=== PATIENT | female | born 1975 | race American Indian/Alaskan Native ===

== ENCOUNTER 2018-04-25 06:07 | Day surgery (SDC) | payer BC ==
[2018-04-21 11:32] LABS: BUN/Creatinine Ratio 14; Blood Urea Nitrogen 7 mg/dL (7-17); Calcium 9.5 mg/dL (8.4-10.2); Hemolysis Index 3
[2018-04-21 11:36] LABS: Hematocrit 29.1 % (30.3-42.9); Hemoglobin 8.8 gm/dl (10.1-14.3); Mean Corpuscular HGB Conc 30 % (30-34); Mean Corpuscular Hemoglobin 22 pg (28-32); Mean Corpuscular Volume 71 fl (79-97); Platelet Count 338 K/mm3 (140-440); Red Blood Count 4.11 M/mm3 (3.65-5.03); Red Cell Distribution Width 24.2 % (13.2-15.2)
[2018-04-21 13:26] LABS: Anisocytosis 2+; Hypochromasia 2+; Total Cells Counted 100
[2018-04-21 13:27] LABS: Large Platelets Few; Ovalocytes 1+; Platelet Estimate Cons; Poikilocytosis 2+; Tear Drop Cells Few
--- NOTE | 2018-04-24 16:53 | History and Physical Report ---
History of Present Illness Date of examination: 04/21/18 History of present illness: Patient has been reassessed/reevaluated H&P has been reviewed. No interval changes. This is a 42 years old female who presents with menstrual disorder. he patient also presents with menstrual disorder. She complains of irregular menses, heavy bleeding, dysmenorrhea, clotting and cramping, but denies mid- cycle spotting, lack of menses, history of ovarian cysts, history of thyroid disease, history of fibroids, history of PCOS, history of bleeding disorder, lightheadedness and fatigue. Number of pads used per day is 6-8. Menstrual flow lasts 3 days and > 7 days. Patient reports that for pain she uses ibuprofen. Patient's work up has included hysterosonogram which revealed an intracavitary mass Patient desires definitive treatment Vital Signs: Patient Profile: 42 Years Old Female LMP: 04/05/2018 Height: 62 inches (157.48 cm) Weight: 182 pounds (82.73 kg) BMI: 33.28 BSA: 1.84 Menstrual History: LMP (date): 04/05/2018 Past History : 3 Term Births: 2 Premature Births: 0 Living Children: 2 Para: 2 Mult. Births: 0 Prev : 0 Prev. attempt? 0 Aborta: 1 Elect. Ab: 1 Spont. Ab: 0 Ectopics: 0 [employer] History Operations: Abdominal Surgery: (2013) abdominoplasty Tubal Ligation (1994) Breast Reduction: (1999) D&C: Abnormal PAP: negative Uterine Anomaly: negative Infection History HIV Risk Eval: no Personal hx. 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 Risk Factors: Smoked Tobacco Use: Never smoker Smokeless Tobacco Use: Never Passive smoke exposure: no Drug use: no HIV high-risk behavior: no Alcohol use: yes Exercise: no Seatbelt use: 100 % Review of Systems General Denies fever, chills, sweats, anorexia, fatigue, weakness, malaise, weight loss and sleep disorder. Complains of menorrhagia, abnormal vaginal bleeding and painful periods. Denies vaginal discharge, incontinence, dysuria, hematuria, urinary frequency, amenorrhea, pelvic pain, genital sores, decreased libido, painful sex , urinary urgency, hot flashes, vaginal dryness, vaginal itching and vaginal odor. CV Denies chest pains, palpitations, syncope, dyspnea on exertion, orthopnea, PND and peripheral edema. Resp Denies cough, dyspnea at rest, excessive sputum, hemoptysis, wheezing and pleurisy. GI Denies nausea, vomiting, diarrhea, constipation, change in bowel habits, abdominal pain, melena, hematochezia, jaundice, gas/bloating, indigestion/ heartburn, dysphagia and odynophagia. Breast Denies left breast lump, right breast lump, nipple discharge, bloody discharge from nipple, breast pain, abnormal mammogram and breast enlargement. Psych Denies depression, anxiety, irritability and mood swings. Past History Past Medical History: other (See HPI) Past Surgical History: Other (See HPI) Social history: other (See HPI) Family history: other (See HPI) Medications and Allergies Allergies Allergy/AdvReac Type Severity Reaction Status Date / Time No Known Allergies Allergy Verified 04/25/18 00:40 Home Medications Medication Instructions Recorded Confirmed Last Taken Type Guaifen/Phenyleph/Acetaminophn 1 each PO PRN PRN 04/15/18 04/15/18 Unknown History [Kro Sinus Relief Caplet] Review of Systems Constitutional: other (See HPI) Exam - Physical Exam Narrative exam: HEENT: normocephalic, no lesions or deformities Neck/Thyroid: supple, thyroid normal Skin no significant abnormal lesions or rashes Chest: respiratory effort normal, clear to auscultation Breasts: skin/areolae normal, no masses, no nipple discharge, no erythema/warmth /tenderness, and axillae normal. Breast reduction surgical scars .Tatoo(s) are present CV: regular, normal S1-S2, no murmur, no rub, no gallop Abdomen: normal bowel sounds, soft, nontender, no HSM abdominoplasty scar .Tatoo (s) are present Musculoskeletal: grossly normal ROM in joints, no joint tenderness or muscle weakness Neuro: no gross anomalities Extremities: no clubbing, cyanosis, or edema [employer] Exams Vulva/Vagina: No lesions, normal BUS, normal rugae Cervix: No lesions; no cervical motion tenderness Uterus: unable to palpate due to abdominoplasty scar Adnexae: unable to palpate due to abdominoplasty scar Rectovaginal: exam defered - Constitutional Vitals: Temp Pulse Resp BP Pulse Ox 98.6 F 76 20 110/70 04/21/18 10:30 04/21/18 10:30 04/21/18 10:30 04/21/18 10:30 Results - Labs CBC & Chem 7: 04/21/18 10:20 04/21/18 10:20 Assessment and Plan - Patient Problems (1) Pelvic mass Current Visit: No Status: Acute Plan to address problem: Diagnosis explained to patient . Questions answered. Medical and surgical treatment options discussed Patient desires definitive treatment Patient desires least invasive procedure Patient desires hysteroscopic myomectomy with endometrial ablation. Discussed risks and benefits of procedure. Informed endometrial ablation does not treat dymenorrhea or myomas. Patient does not desire future fertility Discussed risk of surgery including infection, bleeding and risk of perforating her uterus. Questions answered. Patient understands and desires to proceed (2) Menorrhagia Current Visit: No Status: Acute Qualifiers: Menorrahagia type: with irregular cycle Qualified Code(s): N92.1 - Excessive and frequent menstruation with irregular cycle Plan to address problem: Probably secondary to # 1 (3) Dysmenorrhea Current Visit: No Status: Acute Plan to address problem: Probably secondary to # 1 (4) Anemia Current Visit: No Status: Chronic Qualifiers: Iron deficiency anemia type: chronic blood loss Plan to address problem: Probably secondary to # 2
[~2018-04-25 06:07] MED LIST: LACTATED RINGERS 1,000 ML IV SCH; NACL 0.9% IR ONE; VERSED IV NR
[2018-04-25] MEDS ORDERED: NACL BACTERIOSTATIC INFILTRATI ONE (06:31)
[2018-04-25] MEDS ORDERED: DIPRIVAN 10 MG/ML IV ONE (07:03)
[2018-04-25] MEDS ORDERED: XYLOCAINE MPF 2% ONE (07:04)
[2018-04-25] MEDS ORDERED: DILAUDID ONE (07:20)
[2018-04-25] MEDS ORDERED: DECADRON ONE (07:21)
[2018-04-25] MEDS ORDERED: ZOFRAN ONE (07:22)
--- NOTE | 2018-04-25 07:31 | Anesthesia Consultation ---
Anesthesia Consult and Med Hx Date of service: 04/25/18 - Airway Anesthetic Teeth Evaluation: Good Mental/Hyoid Distance: Adequate Mallampati Class: Class II Intubation Access Assessment: Good - Pulmonary Exam CTA: Yes - Cardiac Exam Cardiac Exam: No Murmur - Pre-Operative Health Status ASA Pre-Surgery Classification: ASA1 - Central Nervous System Hx Psychiatric Problems: No - Hematic Hx Anemia: Yes - Other Systems Hx Cancer: No
--- NOTE | 2018-04-25 07:32 | Anesthesia Day of Surgery ---
Anesthesia Day of Surgery - Day of Surgery Patient Examined: Yes Patient H&P Reviewed: Yes Patient is NPO: Yes
--- NOTE | 2018-04-25 08:37 | Operative Report ---
Operative Report Operative Report: Date of procedure: 04/25/2018 Pre-operative diagnosis: Endometrial mass with menorrhalgia Post-operative diagnosis: Same Procedure name(s): Operative hysteroscopy with MyoSure and NovaSure endometrial ablation Surgeon: Po Álvarez MD [employer]imator [employer] Dra[employer] Supervisor: [] Anesthesia: Gen. EBL: Minimal Complications: None Findings: Patient with approximately 2 cm endometrial mass seen on right side with the uterine wall. Thickened endometrium throughout both tubal ostia were seen Specimen(s): Uterine mass Procedure: Patient was brought into the operating room, where general anesthesia was induced without any difficulty. Patient was placed in dorsal lithotomy position. Prep and drape in the usual sterile manner. Timeout procedure was performed. The patient's bladder was emptied with a red rubber catheter. Speculum was placed in the vagina. Tenaculum was placed at 12:00 on the cervix. The cervical os was dilated to a 19 [place] diameter. The hysteroscope was placed and the findings noted above. The MyoSure device was primed. The device was placed through the cervical os. The mass was then removed using the MyoSure. The mass was completely removed with no evidence of puncture on the uterine wall. All instruments were then removed. The patient was awakened in the operating room and accompanied to recovery room in good condition. The cervical length and uterine cavity was then assessed with a sound. Uterine cavity length was measured to 6 cm with the uterine cavity medicine device. The hysteroscope was then placed through the cervical os. With the findings as noted above. The NovaSure was then placed through the cervical os the uterine width was then measured at the 4.5 cm. After passing the testing for cavity integrity, and NovaSure ablation was then started. The power setting was at 149 and the procedure lasted 76 seconds. The NovaSure applicator was then removed. There was large amount of tissue on the NovaSure. Post procedure hysteroscopy showed a complete cavity ablation. Our instruments are removed. The patient tolerated the procedure well and was awakened in the operating room. Accompanied to recovery in good condition.
--- NOTE | 2018-04-25 08:49 | Short Stay Summary ---
Short Stay Documentation Date of service: 04/25/18 - History H&P: dictated Past Medical History: other (See HPI) Past Surgical History: Other (See HPI) Social history: other (See HPI) - Allergies and Medications Current Medications: Allergies No Known Allergies Allergy (Verified 04/25/18 00:40) Home Medications Medication Instructions Recorded Confirmed Last Taken Type Guaifen/Phenyleph/Acetaminophn 1 each PO PRN PRN 04/15/18 04/15/18 Unknown History [Kro Sinus Relief Caplet] Acetaminophen/Codeine [Tylenol #3] 1 tab PO Q4HR PRN #20 tablet 04/25/18 Unknown Rx Doxycycline [Vibramycin CAP] 100 mg PO Q12HR #14 capsule 04/25/18 Unknown Rx Ibuprofen [Motrin 800 MG tab] 800 mg PO Q6H PRN #30 tablet 04/25/18 Unknown Rx Active Medications Lactated Ringer's (Lactated Ringers) 1,000 mls @ 42 mls/hr IV DIRECT DAPHNE Last Admin: 04/25/18 06:45 Dose: 42 mls/hr Midazolam HCl (Versed) 2 mg IV PREOP NR Stop: 04/25/18 23:59 Last Admin: 04/25/18 07:20 Dose: 2 mg - Brief post op/procedure progress note Date of procedure: 04/25/18 (see dictated operative note) - Hospital course Hospital course: Patient was admitted underwent the above him procedure without any complications. Patient will be discharged with follow-up in office in 1-2 weeks for postop check. - Disposition Condition at discharge: Good Disposition: [id number] TO HOME OR SELFCARE - Discharge Diagnoses (1) Pelvic mass Status: Acute (2) Menorrhagia Status: Acute Qualifiers: Menorrahagia type: with irregular cycle Qualified Code(s): N92.1 - Excessive and frequent menstruation with irregular cycle (3) Dysmenorrhea Status: Acute (4) Anemia Status: Chronic Qualifiers: Iron deficiency anemia type: chronic blood loss Short Stay Discharge Plan Activity: advance as tolerated Diet: regular Follow up with: PRIMARY CARE, [Primary Care Provider] - 7 Days Prescriptions: Ibuprofen [Motrin 800 MG tab] 800 mg PO Q6H PRN #30 tablet PRN Reason: Pain Acetaminophen/Codeine [Tylenol #3] 1 tab PO Q4HR PRN #20 tablet PRN Reason: Pain Doxycycline [Vibramycin CAP] 100 mg PO Q12HR #14 capsule
[2018-04-25 09:49] VITALS: BP 115/69
== END 2018-04-25 10:25 | disposition home or self-care (01) ==
LOC: OR 06:07
PROVIDERS: ATTEND Obstetrics & Gynecology
DX: N84.0 Polyp of corpus uteri (principal); N92.1 Excessive and frequent menstruation with irregular cycle; D50.0 Iron deficiency anemia secondary to blood loss (chronic); Z79.899 Other long term (current) drug therapy; Z98.890 Other specified postprocedural states; Z98.51 Tubal ligation status
CPT/HCPCS: 36415; 58563; 80048; 84703; 85007; 85025; 86850; 86900; 86901; 88305; A4217; C1782; J1100; J1170; J2250; J2405; J2704; J7120